=== PATIENT | male | born 1995 | race Caucasian/White ===

== ENCOUNTER 2017-05-15 18:35 | Emergency (ER) | payer OTHER ==
[~2017-05-15] VITALS: Ht 188 cm; Wt 72.0 kg
[2017-05-15 18:45] VITALS: TEMP 36.7; Ht 188 cm; Wt 72.0 kg
[2017-05-15] MEDS ORDERED: SODIUM CHLORIDE 0.9% 1000ML 1,000 ML IV STA (20:21)
--- NOTE | 2017-05-15 20:44 | EMERGENCY ROOM VISIT NOTE ---
History Report prepared by Kaleb: Jose Armando Leblanc Under the Supervision of: Dr. Romero Macario D.O. First contact with patient: 20:10 Chief Complaint: ILLNESS Stated Complaint: MUSCLE PAIN, FAINTING, POSSIBLE SEIZURE History of Present Illness The patient is a 22 year old male who presents to the Emergency Room after two syncopal episodes that occurred this afternoon. The patient states that he had two syncopal episodes today. He reports that during the first episode he did not hit his head, but during the second episode, he fell and hit his head on the carpet. The patient notes that prior to his episodes he felt lightheaded. He states that he recently had a spinal fusion that consisted of screws and rods. The patient notes that for the past two weeks he has been experiencing left shoulder pain. He reports that all of a sudden his left shoulder would be higher than his right. The patient states that he went to his doctor and was told they were muscle spasms, and he was put on Flexural three days ago. He denies chest pain, shortness of breath, leg pain, leg edema, recent travel, change in appetite, diarrhea, vomiting, urinary symptoms, calf pain, constipation, and abdominal pain. The patient denies the use of alcohol and tobacco. He reports that he did not do anything out of the ordinary today. Source of History: patient Onset: prior to arrival Position: other (global) Quality: other (syncope) Timing: resolved Associated Symptoms: No chest pain, No SOB, No vomiting, No abdominal pain, No diarrhea, No urinary symptoms Note: Associated symptoms: lightheadedness Patient denies leg pain, leg edema, recent travel, change in appetite, calf pain , and constipation Review of Systems See HPI for pertinent positives & negatives. A total of 10 systems reviewed and were otherwise negative. Family History Patient reports no known family medical history. Social History Smoking Status: Never Smoker Alcohol Use: none Occupation Status: [employer] student Current/Historical Medications Scheduled Cyclobenzaprine Hcl (Flexeril), 10 MG PO TID Allergies Coded Allergies: No Known Allergies (Unverified , 05/15/17) Physical Exam Vital Signs Date Time Temp Pulse Resp B/P (MAP) Pulse Ox O2 Delivery O2 Flow Rate FiO2 05/15/17 23:13 74 20 120/73 98 05/15/17 21:11 Room Air 05/15/17 21:05 81 15 96 05/15/17 20:41 86 05/15/17 20:07 105/68 05/15/17 18:45 36.7 79 18 109/68 95 Room Air Physical Exam GENERAL: Patient is awake, alert, and in no acute distress. Patient is resting comfortably and showing no signs of anxiety EYES: The conjunctivae are clear. The pupils are round and reactive. EARS, NOSE, MOUTH AND THROAT: The nose is without any evidence of any deformity. Mucous membranes are moist tongue is midline NECK: The neck is nontender and supple. RESPIRATORY: Normal respiratory effort is noted there is no evidence of wheezing rhonchi or rales CARDIOVASCULAR: Regular rate and rhythm noted there no murmurs rubs or gallops normal S1 normal S2 GASTROINTESTINAL: The abdomen is soft. Bowel sounds are present in all quadrants. Abdomen is nontender BACK: No midline tenderness or or step-off noted range of motion in flexion extension as well as rotation no signs of muscle spasm noted. Post-operative site was noted, no dehiscence, edema, or erythema was noted. MUSCULOSKELETAL/EXTREMITIES: There is no evidence of gross deformity full range of motion is noted in the hips and shoulders SKIN: There is no obvious evidence of any rash. There are no petechiae, pallor or cyanosis noted. No calf tenderness elicited. NEUROLOGIC: Patient is awake alert and oriented x3 strength is symmetric patellar reflexes are 2+ bilaterally Medical Decision & Procedures ER Provider Diagnostic Interpretation: X-ray results as stated below per interpretation by me and the radiologist. SINGLE VIEW CHEST CLINICAL HISTORY: Weakness. Change in mental status. FINDINGS: An AP, portable, upright chest radiograph is obtained. No prior studies are available for comparison at the time of dictation. The examination is mildly degraded by portable technique and patient rotation. The cardiomediastinal silhouette is unremarkable. The lungs and pleural spaces are clear. No pneumothorax is seen. The bony thorax is grossly intact. Thoracic spinal rods are in place. IMPRESSION: No active disease in the chest. Electronically signed by: Bhanu Bird M.D. 05/15/2017 9:02 PM Dictated Date/Time: 05/15/2017 9:01 PM Laboratory Results 05/15/17 21:00 Red Blood Count 4.75, Mean Corpuscular Volume 85.9, Mean Corpuscular Hemoglobin 30.1, Mean Corpuscular Hemoglobin Concent 35.0, Mean Platelet Volume 10.3, Neutrophils (%) (Auto) 47.9, Lymphocytes (%) (Auto) 32.4, Monocytes (%) (Auto) 9.0, Eosinophils (%) (Auto) 10.2, Basophils (%) (Auto) 0.4, Neutrophils # (Auto ) 3.19, Lymphocytes # (Auto) 2.16, Monocytes # (Auto) 0.60, Eosinophils # (Auto ) 0.68, Basophils # (Auto) 0.03 05/15/17 21:00 Test 05/15/17 21:00 White Blood Count 6.67 K/uL (4.8-10.8) Red Blood Count 4.75 M/uL (4.7-6.1) Hemoglobin 14.3 g/dL (14.0-18.0) Hematocrit 40.8 % (42-52) Mean Corpuscular Volume 85.9 fL (80-100) Mean Corpuscular Hemoglobin 30.1 pg (25-34) Mean Corpuscular Hemoglobin Concent 35.0 g/dl (32-36) Platelet Count 226 K/uL (130-400) Mean Platelet Volume 10.3 fL (7.4-10.4) Neutrophils (%) (Auto) 47.9 % Lymphocytes (%) (Auto) 32.4 % Monocytes (%) (Auto) 9.0 % Eosinophils (%) (Auto) 10.2 % Basophils (%) (Auto) 0.4 % Neutrophils # (Auto) 3.19 K/uL (1.4-6.5) Lymphocytes # (Auto) 2.16 K/uL (1.2-3.4) Monocytes # (Auto) 0.60 K/uL (0.11-0.59) Eosinophils # (Auto) 0.68 K/uL (0-0.5) Basophils # (Auto) 0.03 K/uL (0-0.2) RDW Standard Deviation 39.7 fL (36.4-46.3) RDW Coefficient of Variation 12.6 % (11.5-14.5) Immature Granulocyte % (Auto) 0.1 % Immature Granulocyte # (Auto) 0.01 K/uL (0.00-0.02) Erythrocyte Sedimentation Rate 2 mm/hr (0-14) Prothrombin Time 11.6 SECONDS (9.0-12.0) Prothromb Time International Ratio 1.1 (0.9-1.1) Activated Partial Thromboplast Time 27.3 SECONDS (21.0-31.0) Partial Thromboplastin Ratio 1.1 Anion Gap 8.0 mmol/L (3-11) Est Creatinine Clear Calc Drug Dose 109.1 ml/min Estimated GFR () 111.4 Estimated GFR (Non- 96.1 BUN/Creatinine Ratio 11.3 (10-20) Calcium Level 9.0 mg/dl (8.5-10.1) Magnesium Level 2.1 mg/dl (1.8-2.4) Total Bilirubin 0.3 mg/dl (0.2-1) Direct Bilirubin 0.1 mg/dl (0-0.2) Aspartate Amino Transf (AST/SGOT) 16 U/L (15-37) Alanine Aminotransferase (ALT/SGPT) 21 U/L (12-78) Alkaline Phosphatase 132 U/L (45-117) Total Creatine Kinase 49 U/L (39-308) Creatine Kinase MB < 0.5 ng/ml (0.5-3.6) Creatine Kinase MB Ratio (0-3.0) Troponin I < 0.015 ng/ml (0-0.045) C-Reactive Protein < 0.29 mg/dl (0-0.29) Total Protein 7.1 gm/dl (6.4-8.2) Albumin 3.8 gm/dl (3.4-5.0) Thyroid Stimulating Hormone (TSH) 1.160 uIu/ml (0.300-4.500) Laboratory results per my review. Medications Administered Medications (Trade) Dose Ordered Sig/Mervat Route Start Time Stop Time Status Last Admin Dose Admin Sodium Chloride 1,000 ml @ 999 mls/hr Q1H1M STAT IV 05/15/17 20:21 05/15/17 21:21 DC 05/15/17 21:00 999 MLS/HR ECG Indication: syncope Rate (beats per minute): 77 Rhythm: normal sinus Findings: RBBB (incomplete), no ectopy, other (No PVC) Comparison ECG Date: no prior available ED Course 2009: The patient was evaluated in room B03B. A complete history and physical examination were performed. 2020: Ordered NSS 1,000 ml @ 999 mls/hr IV 2242: I discussed the patient's case with Dr. Case, Cardiology. He recommends the patient follow-up as an outpatient. 2315: Upon reevaluation, the patient is resting. I discussed the results and treatment plan with him. He verbalized agreement of the treatment plan. The patient was discharged home. Medical Decision Differential diagnosis: Etiologies such as vasovagal event, infection, hypoglycemia, electrolyte abnormalities, cardiac sources, intracerebral event, toxicologic, neurologic, as well as others were entertained. Medication Reconciliation: I attest that I have personally reviewed the patient' s current medications list. Blood pressure screening: Patient was found to have normal blood pressure on screening and does not require follow-up. The patient is a 22-year-old male who presented to the emergency department for evaluation after having a syncopal episode. The patient presented with his family member. The patient did not have any focal neurologic deficit. The patient denies having any chest pain or shortness of breath. He did not have tachycardia. The patient did recently have surgery on his back and was treated with muscle relaxers recently. I'm unsure if this contributed to the patient's syncopal episode. The patient had pain over his scapula and on physical exam appeared to have some degree of winging of the scapula. I discussed the patient' s laboratory and radiographic studies with him and his mother. They refused the CAT scan even though he admitted that he struck his head during the syncopal episode but did not have any focal neurologic deficits I agreed to cancel this test. The patient was found have an abnormal EKG with a bundle branch block pattern suggested. I discussed his EKG with the on-call lens inspector. At this time I recommended follow-up for further testing including echocardiogram and Holter monitor. I also discussed my other differentials with the patient and his mother including pulmonary embolism or cardiac dysrhythmia. I do not feel a d-dimer would be helpful given the patient's recent postop and the patient and his mother did not wish to have any further radiographic studies at this time it did not want to have a CT and less I felt it was absolutely necessary. I did ask him to rest and avoid any strenuous activity and asked his mother to continue to monitor him for other symptoms such as chest pain palpitations shortness of breath or further syncope which may prompt further workup. Consults Time Called: [id number] Consulting Physician: Dr. Case, Cardiology Returned Call: [phone] I discussed the patient's case with Dr. Case, Cardiology. He recommends the patient follow-up as an outpatient. Impression Primary Impression: Syncope Scribe Attestation The scribe's documentation has been prepared under my direction and personally reviewed by me in its entirety. I confirm that the note above accurately reflects all work, treatment, procedures, and medical decision making performed by me. Departure Information Dispostion Home / Self-Care Referrals Wiliam Slater MD (PCP) Forms HOME CARE DOCUMENTATION FORM, IMPORTANT VISIT INFORMATION, WORK / SCHOOL INSTRUCTIONS Patient Instructions My [facility] [address], Syncope Additional Instructions Follow-up with the lens inspector as soon as possible. Avoid any strenuous activity. Continue to drink plenty clear liquids. Return to the emergency department immediately if symptoms change worsen or the need arises. Problem Qualifiers Primary Impression: Syncope Syncope type: unspecified Qualified Codes: R55 - Syncope and collapse
--- NOTE | 2017-05-15 21:03 | DIAGNOSTIC IMAGING REPORT ---
SINGLE VIEW CHEST CLINICAL HISTORY: Weakness. Change in mental status. FINDINGS: An AP, portable, upright chest radiograph is obtained. No prior studies are available for comparison at the time of dictation. The examination is mildly degraded by portable technique and patient rotation. The cardiomediastinal silhouette is unremarkable. The lungs and pleural spaces are clear. No pneumothorax is seen. The bony thorax is grossly intact. Thoracic spinal rods are in place. IMPRESSION: No active disease in the chest. Electronically signed by: Bhanu Bird M.D. 05/15/2017 9:02 PM Dictated Date/Time: 05/15/2017 9:01 PM
[2017-05-15] MEDS ORDERED: CYCL10TA6 PO (21:06)
[2017-05-15 21:13] LABS: BASO % 0.4 %; BASO ABS # 0.03 K/uL (0-0.2); COMPLETE YES; EOS % 10.2 %; HEMATOCRIT 40.8 % (42-52); IG% 0.1 %; LYMPH % 32.4 %; LYMPH ABS # 2.16 K/uL (1.2-3.4); MEAN CELL VOLUME 85.9 fL (80-100); MEAN CORPUSCULAR HEMOGLOBIN 30.1 pg (25-34); MEAN PLATELET VOLUME 10.3 fL (7.4-10.4); NEUT % 47.9 %; PLATELET COUNT 226 K/uL (130-400); RED BLOOD COUNT 4.75 M/uL (4.7-6.1); WHITE BLOOD COUNT 6.67 K/uL (4.8-10.8)
[2017-05-15 21:24] LABS: INR 1.1 (0.9-1.1); PARTIAL THROMBOPLASTIN RATIO 1.1; PROTHROMBIN TIME (PATIENT) 11.6 SECONDS (9.0-12.0)
[2017-05-15 21:30] LABS: BLOOD UREA NITROGEN 12 mg/dl (7-18); BUN/CREATININE RATIO 11.3 (10-20); CARBON DIOXIDE 26 mmol/L (21-32); CHLORIDE 107 mmol/L (98-107); GLUCOSE 86 mg/dl (70-99); MAGNESIUM 2.1 mg/dl (1.8-2.4); SODIUM 141 mmol/L (136-145)
[2017-05-15 21:41] LABS: ALKALINE PHOSPHATASE 132 U/L (45-117); ALT/SGPT 21 U/L (12-78); AST/SGOT 16 U/L (15-37)
[2017-05-15 21:46] LABS: C-REACTIVE PROTEIN < 0.29 mg/dl (0-0.29)
[2017-05-15 23:13] VITALS: BP 120/73; PULSE 74; O2SAT 98
== END 2017-05-15 23:15 | disposition home or self-care (01) ==
LOC: C.EDB 18:36
DX: R55 Syncope and collapse (principal); I45.10 Unspecified right bundle-branch block